=== PATIENT | female | born 1980 | race Caucasian/White ===

== ENCOUNTER 2017-03-06 15:28 | Emergency (ER) | payer BC, OTHER ==
[~2017-03-06 15:28] MED LIST: ALPR-138 PO; NEUR400C PO; OXYC30TA PO; OXYC40TA20 PO; PHEN30CA PO
[2017-03-06 15:50] VITALS: BP 121/92; PULSE 90; RESP 20; TEMP 98.1; O2SAT 98
--- NOTE | 2017-03-06 16:57 | PD ---
HPI Chief Complaint: Dizziness Time Seen by Provider: 16:36 Travel History International Travel<30 days: No Contact w/Intl Traveler<30days: No Traveled to known affect area: No History of Present Illness HPI The patient was seen and examined in the presence of the nurse. This patient reports that 6 days ago she took a misoprostol for a ten-week intrauterine fetus dated by ultrasound. She complains of some vaginal bleeding and reports that she had a fever. She has pelvic cramping intermittently. Earlier she felt dizzy and lightheaded. Symptoms severity is moderate. No alleviating factors. Duration 6 days. No exacerbating factors. PFSH Past Medical History Bipolar Disorder: Yes Anxiety: Yes Cancer: Yes (BREAST AND PITUITARY) Diabetes: No Diminished Hearing: Yes (FEELS THAT EVERYTHING IS GOING WRONG IN HER BODY) Immune Disorder: Yes Psychiatric: Yes (PTSD, OCD BIPOLAR) Seizures: Yes (REGULAR PETITE MAL SEIZURES. DOES NOT DRIVE, LIGHT TRIGGERED) Tetanus Vaccination: < 5 Years Influenza Vaccination: No ?: Unknown Menopausal: No : 5 Para: 2 Miscarriage: 2 : 1 Social History Alcohol Use: No Tobacco Use: No (03/29 PPD) Substance Use: No Allergies-Medications (Allergen,Severity, Reaction): Coded Allergies: baclofen (Verified Allergy, Severe, Nausea/Vomiting, 03/06/17) naproxen (Verified Allergy, Severe, Heartburn, 03/06/17) pineapple (Verified Allergy, Severe, Swelling, 03/06/17) Reported Meds & Prescriptions Reported Meds & Active Scripts Active Doxycycline Hyclate 100 Mg Cap 100 Mg PO BID Diflucan (Fluconazole) 150 Mg Tab 150 Mg PO ONCE Review of Systems General / Constitutional: Positive: Fever Eyes: No: Visual changes HENT: No: Headaches Cardiovascular: No: Chest Pain or Discomfort Respiratory: No: Shortness of Breath Gastrointestinal: No: Abdominal Pain Genitourinary: Positive: Pelvic Pain, Vaginal Bleeding, No: Dysuria Musculoskeletal: No: Pain Skin: No Rash Neurologic: No: Weakness Psychiatric: No: Depression Endocrine: No: Polydipsia Hematologic/Lymphatic: No: Easy Bruising Physical Exam Narrative GENERAL: Well-nourished, well-developed patient in no apparent distress. SKIN: Focused skin assessment reveals no rash and nodules. Skin is Warm and dry. HEAD: Atraumatic. Normocephalic. EYES: Pupils equal and round. No scleral icterus. No injection or drainage. ENT: No nasal bleeding or discharge. Mucous membranes pink and moist. NECK: Trachea midline. No JVD. CARDIOVASCULAR: Regular rate and rhythm. No murmur appreciated. RESPIRATORY: No accessory muscle use. Clear to auscultation. Breath sounds equal bilaterally. GASTROINTESTINAL: Abdomen soft, non-tender, nondistended. Hepatic and splenic margins not palpable. MUSCULOSKELETAL: No obvious deformities. No clubbing. No cyanosis. No edema. NEUROLOGICAL: Awake and alert. No obvious cranial nerve deficits. Motor grossly within normal limits. Normal speech. PSYCHIATRIC: Appropriate mood and affect; insight and judgment normal. Pelvic: Scant amount of dried clotted blood in the vault. No active bleeding. No discharge seen or lesions seen. No cervical motion tenderness. No significant uterine tenderness noted Data Data Last Documented VS Vital Signs Date Time Temp Pulse Resp B/P (MAP) Pulse Ox O2 Delivery O2 Flow Rate FiO2 03/06/17 16:39 Room Air 03/06/17 15:50 98.1 90 20 121/92 (102) 98 Orders Orders Iv Access Insert/Monitor (03/06/17 16:49) Complete Blood Count With Diff (03/06/17 16:49) Basic Metabolic Panel (Bmp) (03/06/17 16:49) Beta Hcg (Quant/Titer) (03/06/17 16:49) Urinalysis - C+S If Indicated (03/06/17 16:49) Ceftriaxone Inj (Rocephin Inj) (03/06/17 17:15) Urine Culture (03/06/17 17:00) Labs Laboratory Tests Test 03/06/17 17:00 White Blood Count 8.5 TH/MM3 Red Blood Count 4.16 MIL/MM3 Hemoglobin 12.5 GM/DL Hematocrit 36.9 % Mean Corpuscular Volume 88.6 FL Mean Corpuscular Hemoglobin 30.1 PG Mean Corpuscular Hemoglobin Concent 34.0 % Red Cell Distribution Width 12.9 % Platelet Count 373 TH/MM3 Mean Platelet Volume 7.6 FL Neutrophils (%) (Auto) 62.0 % Lymphocytes (%) (Auto) 27.7 % Monocytes (%) (Auto) 8.6 % Eosinophils (%) (Auto) 0.8 % Basophils (%) (Auto) 0.9 % Neutrophils # (Auto) 5.2 TH/MM3 Lymphocytes # (Auto) 2.4 TH/MM3 Monocytes # (Auto) 0.7 TH/MM3 Eosinophils # (Auto) 0.1 TH/MM3 Basophils # (Auto) 0.1 TH/MM3 CBC Comment DIFF FINAL Differential Comment Urine Color YELLOW Urine Turbidity CLEAR Urine pH 6.0 Urine Specific [place] 1.028 Urine Protein TRACE mg/dL Urine Glucose (UA) NEG mg/dL Urine Ketones 15 mg/dL Urine Occult Blood LARGE Urine Nitrite NEG Urine Bilirubin NEG Urine Leukocyte Esterase NEG Urine RBC 4-9 /hpf Urine WBC 9-14 /hpf Urine WBC Clumps FEW Urine Squamous Epithelial Cells > 8 /hpf Urine Calcium Oxalate Crystals FEW /hpf Urine Amorphous Sediment FEW Urine Bacteria FEW /hpf Urine Mucus MANY /lpf Microscopic Urinalysis Comment CULTURE INDICATED Blood Urea Nitrogen 6 MG/DL Creatinine 0.72 MG/DL Random Glucose 100 MG/DL Calcium Level 8.5 MG/DL Sodium Level 141 MEQ/L Potassium Level 4.0 MEQ/L Chloride Level 107 MEQ/L Carbon Dioxide Level 25.3 MEQ/L Anion Gap 9 MEQ/L Estimat Glomerular Filtration Rate 92 ML/MIN Human Chorionic Gonadotropin, Quant 324 MIU/ML [facility] Medical Decision Making Medical Screen Exam Complete: Yes Emergency Medical Condition: Yes Medical Record Reviewed: Yes Differential Diagnosis PID, vaginitis, retained placental products Narrative Course I have reviewed the patient's electronic medical record. IV placed CBC is normal Metabolic profile is normal Beta hCG is 324 Urinalysis will be cultured, may or may not represent some degree of infection but she just received IV Rocephin regardless I gave her 1 g IV Rocephin I gave her a week of doxycycline She requested Diflucan pill I don't see any objective evidence or have any clinical suspicion of endometritis Should follow-up with OB Diagnosis Primary Impression: Fever Qualified Codes: R50.9 - Fever, unspecified Additional Impressions: Vaginal bleeding Additional Instructions: The patient was advised to follow up with their physician and return if they worsen. Med/Other Pt SpecificInfo: Prescription(s) given Scripts Doxycycline Hyclate (Doxycycline Hyclate) 100 Mg Cap 100 MG PO BID for Infection, #14 CAP 0 Refills Prov: Terry Victor MD 03/06/17 Fluconazole (Diflucan) 150 Mg Tab 150 MG PO ONCE for Infection, #1 TAB 0 Refills Prov: Terry Victor MD 03/06/17 Disposition: 01 DISCHARGE HOME Condition: Stable Terry Victor MD Mar 06, 2017 16:57
[2017-03-06 17:13] LABS: BILIRUBIN, URINE NEG (NEG); BLOOD, URINE LARGE (NEG); GLUCOSE,URINE NEG (NEG); KETONE, URINE 15 mg/dL (NEG); NITRITE,URINE NEG (NEG); URINE LEUKOCYTE ESTERASE NEG (NEG)
[2017-03-06] MEDS ORDERED: cefTRIAXone INJ 1,000 MG in SODIUM CHLORIDE 0.9% INJ 100 ML IV ONE (17:15)
[2017-03-06 17:17] LABS: CALCIUM 8.5 MG/DL (8.5-10.1)
[2017-03-06 17:18] LABS: BICARBONATE 25.3 MEQ/L (21.0-32.0)
[2017-03-06 17:21] LABS: CREATININE 0.72 MG/DL (0.50-1.00)
[2017-03-06 17:26] LABS: URINE COLOR YELLOW (YELLW/STRAW)
[2017-03-06 17:27] LABS: BACTERIA, URINE FEW /hpf; CALCIUM OXALATE CRYSTALS,URINE FEW /hpf; MUCUS URINE MANY /lpf (OCC); SQUAMOUS EPITHELIAL CELL URINE > 8 /hpf (0-5); WHITE BLOOD CELL CLUMPS FEW
[2017-03-06 17:28] LABS: AMORPHOUS SEDIMENT, URINE FEW
[2017-03-06 17:32] LABS: AUTOMATED NEUTROPHIL # 5.2 TH/MM3 (1.8-7.7); BASOPHIL # 0.1 TH/MM3 (0-0.2); BASOPHIL % 0.9 % (0.0-2.0); EOSINOPHIL # 0.1 TH/MM3 (0-0.4); EOSINOPHIL % 0.8 % (0.0-4.0); HEMATOCRIT 36.9 % (35.0-46.0); HEMOGLOBIN 12.5 GM/DL (11.6-15.3); LYMPH % 27.7 % (9.0-44.0); LYMPHOCYTE # 2.4 TH/MM3 (1.0-4.8); MEAN CELL VOLUME 88.6 FL (80.0-100.0); MEAN CORPUSCULAR HEMOGLOBIN 30.1 PG (27.0-34.0); MEAN PLATELET VOLUME 7.6 FL (7.0-11.0); MONO % 8.6 % (0.0-8.0); MONOCYTE # 0.7 TH/MM3 (0-0.9); PLATELET COUNT 373 TH/MM3 (150-450); RED BLOOD COUNT 4.16 MIL/MM3 (4.00-5.30); RED CELL DISTRIBUTION WIDTH 12.9 % (11.6-17.2); WHITE BLOOD COUNT 8.5 TH/MM3 (4.0-11.0)
[2017-03-06] MEDS ORDERED: DIFL150T PO (17:46)
[2017-03-06] MEDS ORDERED: DOXY100C PO (17:46)
[2017-03-06 18:20] VITALS: BP 117/73
== END 2017-03-06 18:26 | disposition home or self-care (01) ==
LOC: PHED 15:28
DX: O04.6 Delayed or excessive hemorrhage following (induced) termination of pregnancy (principal); R50.9 Fever, unspecified; R82.99 Other abnormal findings in urine; R56.9 Unspecified convulsions; F31.9 Bipolar disorder, unspecified; F43.10 Post-traumatic stress disorder, unspecified; F42.9 Obsessive-compulsive disorder, unspecified; F17.210 Nicotine dependence, cigarettes, uncomplicated; Z85.3 Personal history of malignant neoplasm of breast; Z88.8 Allergy status to other drugs, medicaments and biological substances
CPT/HCPCS: 80048; 81001; 84702; 85025; 87086; 96365; 99284; J0696

== ENCOUNTER 2017-03-20 16:10 | Emergency (ER) | payer OTHER ==
[~2017-03-20 16:10] MED LIST changes: -ALPR-138 PO; +DIFL150T PO; +DOXY100C PO; -NEUR400C PO; -OXYC30TA PO; -OXYC40TA20 PO; -PHEN30CA PO
[2017-03-20 16:31] VITALS: RESP 16
[2017-03-20] MEDS ORDERED: SODIUM CHLOR 0.9% 1000 ML INJ 1,000 ML IV ONE (16:36)
[2017-03-20 16:45] VITALS: BP 132/83; PULSE 97; RESP 18; TEMP 98.2; O2SAT 99
[2017-03-20] MEDS ORDERED: SODIUM CHLORIDE 0.9% FLUSH 10 ML FLUSH IVF PRN (16:45)
[2017-03-20] MEDS ORDERED: CYTO200T PO (17:04)
[2017-03-20 17:07] LABS: AUTOMATED NEUTROPHIL # 4.1 TH/MM3 (1.8-7.7); BASOPHIL % 0.5 % (0.0-2.0); EOSINOPHIL # 0.1 TH/MM3 (0-0.4); EOSINOPHIL % 0.8 % (0.0-4.0); HEMATOCRIT 39.1 % (35.0-46.0); HEMOGLOBIN 12.8 GM/DL (11.6-15.3); LYMPH % 31.4 % (9.0-44.0); LYMPHOCYTE # 2.3 TH/MM3 (1.0-4.8); MEAN CELL VOLUME 88.9 FL (80.0-100.0); MEAN CORPUSCULAR HEMOGLOBIN 29.2 PG (27.0-34.0); MEAN CORPUSCULAR HGB CONC 32.8 % (32.0-36.0); MEAN PLATELET VOLUME 8.2 FL (7.0-11.0); MONO % 11.5 % (0.0-8.0); MONOCYTE # 0.9 TH/MM3 (0-0.9); NEUT % 55.8 % (16.0-70.0); PLATELET COUNT 225 TH/MM3 (150-450); RED CELL DISTRIBUTION WIDTH 12.6 % (11.6-17.2); WHITE BLOOD COUNT 7.4 TH/MM3 (4.0-11.0)
--- NOTE | 2017-03-20 17:11 | PD ---
HPI Chief Complaint: Related Problem Time Seen by Provider: 16:38 Travel History International Travel<30 days: No Contact w/Intl Traveler<30days: No Traveled to known affect area: No History of Present Illness HPI Patient is a 36-year-old female presents to emergency room for evaluation of possible . Patient reports that she had an at the [facility] at 9- 10 weeks into her on February 25, 2017. Patient reports that on that day, she took a dose of misoprostol 200 mcg. Patient reports that she had residual bleeding and abdominal cramping. Patient was subsequently seen at this emergency room on March 06, 2017 as she had dizziness and pelvic cramping 6 days after her tablet. Patient reports that at that time, she had a pelvic exam performed, hCG Quant was 324. Patient was told that she was most likely complaining her and to follow -up with her CHIPPING MACHINE OPERATOR. Patient reports that for the past few days, she's had heavy vaginal bleeding. She follow-up with her CHIPPING MACHINE OPERATOR today and had a pelvic us performed by a installation and service technician. Reports that the installation and service technician would not give her results of the ultrasound and she was concerned as she saw herself a possible IUP. Patient reports that she was given a prescription for another dose of misoprostol and was told to take this. Patient concerned that she be and if she is this time - would like to keep the child as this would be from a different father. Patient reports that she was unable to see her OB, she is here to see if she is actually with another child at this time. Patient is currently sexually active with one partner [facility] Past Medical History Bipolar Disorder: Yes Anxiety: Yes Cancer: Yes (BREAST AND PITUITARY) Diabetes: No Diminished Hearing: Yes (FEELS THAT EVERYTHING IS GOING WRONG IN HER BODY) Immune Disorder: Yes Psychiatric: Yes (PTSD, OCD BIPOLAR) Seizures: Yes (REGULAR PETITE MAL SEIZURES. DOES NOT DRIVE, LIGHT TRIGGERED) ?: Menopausal: No : 5 Para: 2 Miscarriage: 2 : 1 Past Surgical History Surgical History: No Previous Surgery Social History Alcohol Use: No Tobacco Use: No (03/29 PPD) Substance Use: No Allergies-Medications (Allergen,Severity, Reaction): Coded Allergies: baclofen (Verified Allergy, Severe, Nausea/Vomiting, 03/06/17) naproxen (Verified Allergy, Severe, Heartburn, 03/06/17) pineapple (Verified Allergy, Severe, Swelling, 03/06/17) Reported Meds & Prescriptions Reported Meds & Active Scripts Active Reported Cytotec (Misoprostol) 200 Mcg Tab 200 Mcg PO QID Review of Systems General / Constitutional: No: Fever Eyes: No: Visual changes HENT: No: Headaches Cardiovascular: No: Chest Pain or Discomfort Respiratory: No: Shortness of Breath Gastrointestinal: Positive: Abdominal Pain Genitourinary: Positive: Vaginal Bleeding, No: Urgency, Frequency, Dysuria, Discharge Musculoskeletal: No: Pain Skin: No Rash Neurologic: No: Weakness Psychiatric: No: Depression Endocrine: No: Polydipsia Hematologic/Lymphatic: No: Easy Bruising Physical Exam Narrative GENERAL: NAD SKIN: Focused skin assessment warm/dry. HEAD: Atraumatic. Normocephalic. EYES: Pupils equal and round. No scleral icterus. No injection or drainage. ENT: No nasal bleeding or discharge. Mucous membranes pink and moist. NECK: Trachea midline. No JVD. CARDIOVASCULAR: Regular rate and rhythm. No murmur appreciated. RESPIRATORY: No accessory muscle use. Clear to auscultation. Breath sounds equal bilaterally. GASTROINTESTINAL: Abdomen soft, non-tender, nondistended. Hepatic and splenic margins not palpable. MUSCULOSKELETAL: No obvious deformities. No clubbing. No cyanosis. No edema. NEUROLOGICAL: Awake and alert. No obvious cranial nerve deficits. Motor grossly within normal limits. Normal speech. PSYCHIATRIC: Appropriate mood and affect; insight and judgment normal. Data Data Last Documented VS Vital Signs Date Time Temp Pulse Resp B/P (MAP) Pulse Ox O2 Delivery O2 Flow Rate FiO2 03/20/17 18:30 87 18 121/68 (85) 98 Room Air 03/20/17 16:45 98.2 Orders Orders Beta Hcg (Quant/Titer) (03/20/17 16:36) Complete Blood Count With Diff (03/20/17 16:36) Comprehensive Metabolic Panel (03/20/17 16:36) Complete Rh (03/20/17 16:36) Type And Screen (03/20/17 16:36) Urinalysis - C+S If Indicated (03/20/17 16:36) Iv Access Insert/Monitor (03/20/17 16:36) Ecg Monitoring (03/20/17 16:36) Sodium Chloride 0.9% Flush (Ns Flush) (03/20/17 16:45) Sodium Chlor 0.9% 1000 Ml Inj (Ns 1000 M (03/20/17 16:36) Ed Urine Pregnancytest Poc (03/20/17 16:36) Vital Signs (Adult) RASHAAD.Q4H (03/20/17 17:11) Us Pelvis (Ques Pr/Ect)W Trans (03/20/17 ) Labs Laboratory Tests Test 03/20/17 16:50 03/20/17 17:55 White Blood Count 7.4 TH/MM3 Red Blood Count 4.40 MIL/MM3 Hemoglobin 12.8 GM/DL Hematocrit 39.1 % Mean Corpuscular Volume 88.9 FL Mean Corpuscular Hemoglobin 29.2 PG Mean Corpuscular Hemoglobin Concent 32.8 % Red Cell Distribution Width 12.6 % Platelet Count 225 TH/MM3 Mean Platelet Volume 8.2 FL Neutrophils (%) (Auto) 55.8 % Lymphocytes (%) (Auto) 31.4 % Monocytes (%) (Auto) 11.5 % Eosinophils (%) (Auto) 0.8 % Basophils (%) (Auto) 0.5 % Neutrophils # (Auto) 4.1 TH/MM3 Lymphocytes # (Auto) 2.3 TH/MM3 Monocytes # (Auto) 0.9 TH/MM3 Eosinophils # (Auto) 0.1 TH/MM3 Basophils # (Auto) 0.0 TH/MM3 CBC Comment DIFF FINAL Differential Comment Blood Urea Nitrogen 7 MG/DL Creatinine 0.79 MG/DL Random Glucose 101 MG/DL Total Protein 7.8 GM/DL Albumin 4.1 GM/DL Calcium Level 9.0 MG/DL Alkaline Phosphatase 80 U/L Aspartate Amino Transf (AST/SGOT) 21 U/L Alanine Aminotransferase (ALT/SGPT) 24 U/L Total Bilirubin 0.5 MG/DL Sodium Level 138 MEQ/L Potassium Level 4.3 MEQ/L Chloride Level 103 MEQ/L Carbon Dioxide Level 27.5 MEQ/L Anion Gap 8 MEQ/L Estimat Glomerular Filtration Rate 83 ML/MIN Human Chorionic Gonadotropin, Quant 17 MIU/ML Urine Color YELLOW Urine Turbidity CLEAR Urine pH 6.0 Urine Specific [place] 1.005 Urine Protein NEG mg/dL Urine Glucose (UA) NEG mg/dL Urine Ketones NEG mg/dL Urine Occult Blood LARGE Urine Nitrite NEG Urine Bilirubin NEG Urine Leukocyte Esterase TRACE Urine RBC 4-9 /hpf Urine WBC 0-2 /hpf Urine Squamous Epithelial Cells 0-5 /hpf Microscopic Urinalysis Comment CULT NOT INDICATED MDM Medical Decision Making Medical Screen Exam Complete: Yes Emergency Medical Condition: Yes Medical Record Reviewed: Yes Interpretation(s) Vital Signs Date Time Temp Pulse Resp B/P (MAP) Pulse Ox O2 Delivery O2 Flow Rate FiO2 03/20/17 16:31 16 Differential Diagnosis , endometritis, missed Narrative Course During the course of the patients emergency department visit, the patients history, examination, and differential diagnosis were reviewed with the patient. The patient was placed on a monitor and storage bin tender with oximetry and frequent blood pressure monitoring. The patient had an IV access obtained and blood work sent for analysis. Patient does not have any abdominal pain at this time, she is concerned that she may be again with a different father of the baby after she took Misoprostol on 02/25/17 for a planned . The patient was initially provided IVF The patients laboratory studies were reviewed and remarkable for: Laboratory Tests Test 03/20/17 16:50 03/20/17 17:55 White Blood Count 7.4 TH/MM3 (4.0-11.0) Red Blood Count 4.40 MIL/MM3 (4.00-5.30) Hemoglobin 12.8 GM/DL (11.6-15.3) Hematocrit 39.1 % (35.0-46.0) Mean Corpuscular Volume 88.9 FL (80.0-100.0) Mean Corpuscular Hemoglobin 29.2 PG (27.0-34.0) Mean Corpuscular Hemoglobin Concent 32.8 % (32.0-36.0) Red Cell Distribution Width 12.6 % (11.6-17.2) Platelet Count 225 TH/MM3 (150-450) Mean Platelet Volume 8.2 FL (7.0-11.0) Neutrophils (%) (Auto) 55.8 % (16.0-70.0) Lymphocytes (%) (Auto) 31.4 % (9.0-44.0) Monocytes (%) (Auto) 11.5 % (0.0-8.0) Eosinophils (%) (Auto) 0.8 % (0.0-4.0) Basophils (%) (Auto) 0.5 % (0.0-2.0) Neutrophils # (Auto) 4.1 TH/MM3 (1.8-7.7) Lymphocytes # (Auto) 2.3 TH/MM3 (1.0-4.8) Monocytes # (Auto) 0.9 TH/MM3 (0-0.9) Eosinophils # (Auto) 0.1 TH/MM3 (0-0.4) Basophils # (Auto) 0.0 TH/MM3 (0-0.2) CBC Comment DIFF FINAL Differential Comment Blood Urea Nitrogen 7 MG/DL (7-18) Creatinine 0.79 MG/DL (0.50-1.00) Random Glucose 101 MG/DL (74-106) Total Protein 7.8 GM/DL (6.4-8.2) Albumin 4.1 GM/DL (3.4-5.0) Calcium Level 9.0 MG/DL (8.5-10.1) Alkaline Phosphatase 80 U/L (45-117) Aspartate Amino Transf (AST/SGOT) 21 U/L (15-37) Alanine Aminotransferase (ALT/SGPT) 24 U/L (10-53) Total Bilirubin 0.5 MG/DL (0.2-1.0) Sodium Level 138 MEQ/L (136-145) Potassium Level 4.3 MEQ/L (3.5-5.1) Chloride Level 103 MEQ/L (98-107) Carbon Dioxide Level 27.5 MEQ/L (21.0-32.0) Anion Gap 8 MEQ/L (5-15) Estimat Glomerular Filtration Rate 83 ML/MIN (>89) Human Chorionic Gonadotropin, Quant 17 MIU/ML (0-5) Urine Color YELLOW (YELLW/STRAW) Urine Turbidity CLEAR (CLEAR) Urine pH 6.0 (5.0-8.5) Urine Specific [place] 1.005 (1.002-1.035) Urine Protein NEG mg/dL (NEG-TRACE) Urine Glucose (UA) NEG mg/dL (NEG) Urine Ketones NEG mg/dL (NEG) Urine Occult Blood LARGE (NEG) Urine Nitrite NEG (NEG) Urine Bilirubin NEG (NEG) Urine Leukocyte Esterase TRACE (NEG) Urine RBC 4-9 /hpf (0-3) Urine WBC 0-2 /hpf (0-5) Urine Squamous Epithelial Cells 0-5 /hpf (0-5) Microscopic Urinalysis Comment CULT NOT INDICATED Radiology studies were reviewed and remarkable for Last Impressions Pelvis Ultrasound 03/20/17 0000 Signed Impressions: Service Date/Time: Monday, March 20, 2017 17:59 - CONCLUSION: 1. Complex cystic mass of the right ovary, nonspecific. Ectopic not excludable although no discrete yolk sac, gestational sac or pole demonstrated. 2. Thickened endometrium. Otherwise normal appearing uterus. No IUP seen. 3. Subcentimeter benign appearing follicle of the left ovary. Flex Forrester MD HCG Quant has trended down to 17. Pelvic ultrasound with no evidence of IUP, she does have a complex cystic mass to the right ovary which is nonspecific. I reviewed all findings as well as all incidental findings with patient in detail , understands that an ectopic cannot be ruled out, understands that she will need to follow her hCG Quant until 0. Hemoglobin is stable at 12.8, plan to discharge patient to home with follow-up with her CHIPPING MACHINE OPERATOR. Signs and symptoms of when to return to the emergency room was reviewed patient in detail. She was given a copy of her studies at discharge Diagnosis Primary Impression: Vaginal bleeding Additional Impressions: Ectopic of ovary Patient Instructions: General Instructions Additional Instructions: Please provide patient with a copy of their lab work and studies at discharge* * Please follow up with your primary care doctor in 2-3 days Return to the ER if symptoms worsen or progress Return to the ER as needed Please follow up with your runner on as soon as possible Please have your HCG quant repeated in 48 hours Disposition: 01 DISCHARGE HOME Condition: Stable Haley Ramos DO Mar 20, 2017 17:11
[2017-03-20 17:14] LABS: CHLORIDE 103 MEQ/L (98-107); SODIUM (NA) 138 MEQ/L (136-145)
[2017-03-20 17:17] LABS: ALBUMIN 4.1 GM/DL (3.4-5.0); BICARBONATE 27.5 MEQ/L (21.0-32.0); BLOOD UREA NITROGEN 7 MG/DL (7-18); GLUCOSE,RANDOM 101 MG/DL (74-106)
[2017-03-20 17:20] LABS: ALT (GPT) 24 U/L (10-53); AST (GOT) 21 U/L (15-37)
[2017-03-20 17:21] LABS: CREATININE 0.79 MG/DL (0.50-1.00); GLOMERULAR FILTRATION RATE 83 ML/MIN (>89)
[2017-03-20 17:22] LABS: TOTAL BILIRUBIN ADULT 0.5 MG/DL (0.2-1.0); TOTAL PROTEIN 7.8 GM/DL (6.4-8.2)
[2017-03-20 17:23] LABS: ALKALINE PHOSPHATASE 80 U/L (45-117)
[2017-03-20 18:23] LABS: BILIRUBIN, URINE NEG (NEG); BLOOD, URINE LARGE (NEG); GLUCOSE,URINE NEG (NEG); KETONE, URINE NEG (NEG); NITRITE,URINE NEG (NEG); URINE LEUKOCYTE ESTERASE TRACE (NEG)
[2017-03-20 18:30] VITALS: BP 121/68; PULSE 87; RESP 18; O2SAT 98
[2017-03-20 18:43] LABS: URINE COLOR YELLOW (YELLW/STRAW)
[2017-03-20 18:44] LABS: SQUAMOUS EPITHELIAL CELL URINE 0-5 /hpf (0-5); WBC, URINE 0-2 /hpf (0-5)
--- NOTE | 2017-03-20 18:53 | RADRPT ---
EXAM DATE/TIME: 03/20/2017 17:59 [facility] COMPARISON: No previous studies available for comparison. INDICATIONS : Bleeding. LAB(S): Beta-hC MEDICAL HISTORY : Seizures. Anxiety. Depression. Bipolar disorder. Breast cancer. Pituitary cancer. SURGICAL HISTORY : None. ENCOUNTER: Initial ACUITY: 3 weeks PAIN SCORE: 0/10 LOCATION: Bilateral pelvis MEASUREMENTS: UTERUS: 10.1 x 7.2 x 5.5 cm ENDOMETRIAL STRIPE: 15 mm RIGHT OVARY: 4.4 x 4.0 x 3.3 cm LEFT OVARY: 4.1 x 2.4 x 2.1 cm FREE FLUID: Yes FINDINGS: Endometrium is thick. Uterus otherwise within normal limits. No intrauterine demonstrated. No fluid or other products within the uterine cavity. Large complex cystic mass measuring 6.0 x 4.4 x 2.2 cm seen in the right ovary. 8mm simple appearing cyst seen of the left ovary. Small free fluid in the pelvic cul-de-sac and around both ovaries. CONCLUSION: 1. Complex cystic mass of the right ovary, nonspecific. Ectopic not excludable although no discrete y olk sac, gestational sac or pole demonstrated. 2. Thickened endometrium. Otherwise normal appearing uterus. No IUP seen. 3. Subcentimeter benign appearing follicle of the left ovary. Flex Forrester MD on March 20, 2017 at 18:48 Board Certified Radiologist. This report was verified electronically.
[2017-03-20 19:29] VITALS: BP 122/60
== END 2017-03-20 19:35 | disposition home or self-care (01) ==
LOC: PHED 16:10
DX: O00.90 Unspecified ectopic pregnancy without intrauterine pregnancy (principal); O03.9 Complete or unspecified spontaneous abortion without complication
CPT/HCPCS: 76700; 76817; 80053; 81001; 84702; 84703; 85025; 86850; 86900; 86901; 96360; 99285; J7030